=== PATIENT | male | born 1955 | race Caucasian/White ===

== ENCOUNTER 2022-02-24 07:42 | Day surgery (SDC) | payer MEDICARE ==
[~2022-02-24] VITALS: Ht 210.8 cm; Wt 104.0 kg
[~2022-02-24 07:42] MED LIST changes: -FAMO20; -TICA90TA PO
[2022-02-24] MEDS ORDERED: FAMO20 (08:43)
--- NOTE | 2022-02-24 12:05 | NUR ---
PT SITTING IN RECLINER EATING LUNCH WITH FAMILY IN ROOM. RIGHT RADIAL TR BAND SITE SOFT NON-TENDER WTIH NO HEMATOMA, NO PULSATILE BLEEDING AND WRIST BOARD IN PLACE. PT DENIES CHEST PAIN. CALL LIGHT IN REACH.
--- NOTE | 2022-02-24 13:29 | NUR ---
DR. SHARMA AT THE BEDSIDE AND SPOKE TO THE PATIENT. ALL QUESTIONS ANSWERED.
[2022-02-24] MEDS ORDERED: TICA90TA PO (13:59)
--- NOTE | 2022-02-24 14:42 | NUR ---
9339 SBAR RECEIVED FROM CRYS العلي. TR BAND IN PLACE.
--- NOTE | 2022-02-24 14:59 | NUR ---
PATIENT UP TO THE RESTROOM, VOIDED. BACK TO RECLINER AND ON MONITOR. CALL LIGHT IN REACH.
--- NOTE | 2022-02-24 15:33 | NUR ---
1500 BEGAN RELEASING AIR FROM THE TR BAND.
--- NOTE | 2022-02-24 15:33 | NUR ---
1520 TR BAND FLAT, ALL AIR RELEASED. SBAR GIVEN TO CRYS HORN.
--- NOTE | 2022-02-24 15:35 | NUR ---
ASSUMED CARE OF PT. PT AWAKE AND ORIENTED, CONVERSING APPROPRIATELY; DENIES CHEST PAIN, VSS. R RADIAL NO SWELLING/HEMATOMA, TR BAND IN PLACE-FULLY DEFLATED; RUE POSITIVE PLEUTH.
--- NOTE | 2022-02-24 16:10 | NUR ---
PT AMB TO BATHROOM, VOIDED QS; SITE UNCHANGED WITH ACTIVITY.
--- NOTE | 2022-02-24 16:20 | NUR ---
PT DRESSED SELF WITHOUT ISSUE, SITE UNCHANGED. TR BAND REMOVED, CLOTH DOTH AND WRIST IMMOBILIZER PLACED; IV REMOVED-CANNULA INTACT. PT DECLINED SLING.
--- NOTE | 2022-02-24 16:26 | NUR ---
PT AND RECEIVED DISCHARGE INSTRUCTIONS, MED LIST AND AFTER CARE INSTRUCTIONS; VERBALIZED GOOD UNDERSTANDING. PT LEFT FACILITY VIA W/C, CONDITION STABLE.
== END 2022-02-24 16:26 | disposition home or self-care (01) ==
LOC: MHTC 07:42
PROC: B2111ZZ Fluoroscopy of Multiple Coronary Arteries using Low Osmolar Contrast (ICD-10-PCS; principal; 2022-02-24)
PROC: 4A023N7 Measurement of Cardiac Sampling and Pressure, Left Heart, Percutaneous Approach (ICD-10-PCS; principal; 2022-02-24)
PROC: 027034Z Dilation of Coronary Artery, One Artery with Drug-eluting Intraluminal Device, Percutaneous Approach (ICD-10-PCS; principal; 2022-02-24)
DX: I25.119 Atherosclerotic heart disease of native coronary artery with unspecified angina pectoris (principal); I10 Essential (primary) hypertension; E78.5 Hyperlipidemia, unspecified; K21.9 Gastro-esophageal reflux disease without esophagitis; E66.9 Obesity, unspecified; E78.1 Pure hyperglyceridemia; Z87.891 Personal history of nicotine dependence; Z79.82 Long term (current) use of aspirin; Z79.899 Other long term (current) drug therapy; Z68.31 Body mass index [BMI] 31.0-31.9, adult
CPT/HCPCS: 76937; 85347; 92978; 93454; 99152; 99153; A9270; C1725; C1753; C1761; C1769; C1874; C1887; C1894; C9600; C9602; J1644; J2250; J3010; J7030; J7040; J7050; Q9967

== ENCOUNTER → 2022-02-24 | Outpatient (CLI) | payer MEDICARE ==
[~2022-02-24] MED LIST: ALLO300 PO; AMLO10 PO; ASPI81CH PO; Amlodipine Bes2.5 MG PO; Aspirin EC81 MG PO; Atenolol100 MG PO; CALCA500CH; FAMO20; FENO145 PO; Hytrin1 MG PO; IBUP600 PO; LISI20; METOPROLOL TART PO; Norco 5-325 Ta1 EACH PO; TICA90TA PO
[2022-02-25 11:54] LABS: Stool Occult Bld Immuno 1 Negative (NEGATIVE); Stool Occult Bld Immuno 2 Negative (NEGATIVE)
== END | disposition home or self-care (01) ==
LOC: LAB 07:00 → LAB SHORT 07:00
PROVIDERS: Internal Medicine Gastroenterology
DX: Z12.11 Encounter for screening for malignant neoplasm of colon (principal)
CPT/HCPCS: 82274

== ENCOUNTER 2024-12-29 09:15 | Observation (INO) | payer MEDICARE ==
[2024-12-29] VITALS (8 sets, daily range): BP systolic 132–190; BP diastolic 71–94
[~2024-12-29] VITALS: Ht 180.3 cm; Wt 99.2 kg
[~2024-12-29 09:15] MED LIST changes: +AMLODIPINE BESY10 MG PO; -Amlodipine Bes2.5 MG PO; +FAMO20 PO; -LISI20; +LISINOPRIL PO; +METO50 PO; -METOPROLOL TART PO; +TICA90TA PO
[2024-12-29 09:45] LABS: BASOPHILS ABSOLUTE AUTO 0.02 K/mm3 (0.00-0.23); BASOPHILS PERCENT AUTO 0 % (0-2); EOSINOPHILS ABSOLUTE AUTO 0.13 K/mm3 (0.00-0.68); EOSINOPHILS PERCENT AUTO 2 % (0-6); Hematocrit 40.0 % (37.0-53.0); Hemoglobin 14.4 g/dL (13.5-17.5); IMMATURE GRAN ABSOLUTE AUTO 0.03 K/mm3 (0.00-0.10); IMMATURE GRAN PERCENT AUTO 1 % (0-1); LYMPHOCYTES ABSOLUTE AUTO 1.53 K/mm3 (0.84-5.20); LYMPHOCYTES PERCENT AUTO 24 % (21-46); MONOCYTES ABSOLUTE AUTO 0.55 K/mm3 (0.16-1.47); MONOCYTES PERCENT AUTO 9 % (4-13); Mean Corpuscular HGB Conc 36.0 g/dL (31.5-36.5); Mean Corpuscular Volume 90 fL (80-100); NEUTROPHILS ABSOLUTE AUTO 4.04 K/mm3 (1.96-9.15); NEUTROPHILS PERCENT AUTO 64 % (41-73); NRBC ABSOLUTE 0.00 K/mm3 (0.00-0.02); NRBC Auto 0.0 /100 WBC (0.0-0.2); Platelet Count 151 K/mm3 (150-400); RDW Coefficient Variation 12.0 % (11.7-14.2); RDW Standard Deviation 39.4 fL (35.1-46.3)
[2024-12-29 10:13] LABS: Alanine Aminotransfer (ALT/SGP 35.0 U/L (12-78); Albumin, Blood 3.5 g/dL (3.4-5.0); Albumin/Globulin Ratio 0.9 (0.8-1.8); Anion Gap 8.0 mmol/L (3-11); Aspartate Aminotrans (AST/SGOT 27.0 U/L (12-37); Bilirubin, Total 0.6 mg/dL (0.1-1.0); Blood Urea Nitrogen 13.0 mg/dL (8-24); CO2, Blood 26.0 mmol/L (21-32); Calcium, Blood 8.6 mg/dL (8.5-10.1); Chloride, Blood 105.0 mmol/L (98-108); Creatinine, Blood 0.75 mg/dL (0.60-1.20); Globulin, Blood 3.8 g/dL (2.2-4.0); Glucose, Blood 153.0 mg/dL (70-99); Potassium, Blood 3.9 mmol/L (3.5-5.5); Sodium, Blood 135.0 mmol/L (136-145); Total Protein, Blood 7.3 g/dL (6.4-8.2)
[2024-12-29 11:06] LABS: Prothrombin Time Results 10.9 Sec (9.7-11.5)
[2024-12-29] MEDS ORDERED: Heparin Sodium 5000 Units/ML 1ML MDV IV ONE (11:15)
[2024-12-29] MEDS ORDERED: Heparin Sodium,Porcine/0.5 NS 500 ML IV SCH (11:15)
[2024-12-29] MEDS ORDERED: ATOR10 PO (12:45)
[2024-12-29] MEDS ORDERED: VASCEPA1 G1 PO (12:47)
[2024-12-29] MEDS ORDERED: NS 1,000 ML IV ONE ×2 (14:27→14:40)
[2024-12-29] MEDS ORDERED: Verapamil HCL 2.5 MG/ML 2ML Injection ONE (14:27)
[2024-12-29] MEDS ORDERED: Heparin Sodium 1000 Units/ML 10ML MDV ONE (14:27)
[2024-12-29] MEDS ORDERED: NS 250 ML IV ONE (14:27)
[2024-12-29] MEDS ORDERED: Nitroglycerin 2 MG/20 ML BTL ONE (14:27)
[2024-12-29] MEDS ORDERED: Midazolam HCl 1MG / ML 2ML Vial ONE (14:40)
[2024-12-29] MEDS ORDERED: FentaNYL Citrate 50 MCG/ML 2 ML Injection ONE (14:40)
[2024-12-29] MEDS ORDERED: Tirofiban HCL M-Hyd/NS 250 ML IV ONE (15:38)
[2024-12-29] MEDS ORDERED: NS 1,000 ML IV SCH (16:55)
--- NOTE | 2024-12-29 18:29 | NUR ---
TR BAND REMOVED 2ML OF AIR FROM TR BAND, SITE LOOKS C/D/I. EDUCATED PATIENT ON DEFLATION PROCESS.
--- NOTE | 2024-12-29 18:30 | NUR ---
SHIFT SUMMARY PT BROUGHT UP TO THE FLOOR FROM THE ER, ADMITTED FOR NSTEMI, CARDIOLOGY CONSULTED, TAKEN TO THE IT ASSOCIATE FOR ANGO WITH STENT PLACEMENT, PT RETURNED TO THE ROOM AFTER HIS PROCEDURE WITH 1 NEW STENT IN HIS RCA. STARTED TR BAND DEFLATION WITH 2ML OF AIR REMOVED SO FAR. PT EDUCATED ON TR BAND PROCESS, PT STATES ON HIS PRIOR STENTING THE RADIAL SITE WAS THE ONE ACCESSED WELL SO HE WAS FAMILIAR WITH THE PROCESS. NO ACUTE EVENTS THIS SHIFT, PLAN TO MONITOR OVER NIGHT WITH POSSIBLE DC IN THE MORNING.
--- NOTE | 2024-12-29 18:48 | NUR ---
TR BAND ADJUSTMENT REMOVED ANOTHER 2ML OF AIR FROM TR BAND TOTAL OF 4 ML REMOVED.
--- NOTE | 2024-12-29 19:02 | NUR ---
TR BAND ADJUSTMENT REMOVED 3 ML FROM TR BAND, NO BLEEDING NOTED TOTAL 7 ML REMOVED SO FAR NOT COUNTING BLEED OFF.
[2024-12-29] MEDS ORDERED: Omega-3 Acid Ethyl Esters 1,000 MG CAP PO SCH (21:00)
[2024-12-30 02:10] LABS: Alanine Aminotransfer (ALT/SGP 35.0 U/L (12-78); Albumin, Blood 3.2 g/dL (3.4-5.0); Albumin/Globulin Ratio 0.9 (0.8-1.8); Anion Gap 9.0 mmol/L (3-11); Aspartate Aminotrans (AST/SGOT 24.0 U/L (12-37); Bilirubin, Total 0.7 mg/dL (0.1-1.0); Blood Urea Nitrogen 10.0 mg/dL (8-24); CO2, Blood 26.0 mmol/L (21-32); Calcium, Blood 7.9 mg/dL (8.5-10.1); Chloride, Blood 105.0 mmol/L (98-108); Creatinine, Blood 0.74 mg/dL (0.60-1.20); Globulin, Blood 3.5 g/dL (2.2-4.0); Glucose, Blood 91.0 mg/dL (70-99); Potassium, Blood 3.5 mmol/L (3.5-5.5); Sodium, Blood 136.0 mmol/L (136-145); Total Protein, Blood 6.7 g/dL (6.4-8.2)
[2024-12-30 02:16] LABS: BASOPHILS ABSOLUTE AUTO 0.02 K/mm3 (0.00-0.23); BASOPHILS PERCENT AUTO 0 % (0-2); EOSINOPHILS ABSOLUTE AUTO 0.14 K/mm3 (0.00-0.68); EOSINOPHILS PERCENT AUTO 2 % (0-6); Hematocrit 39.1 % (37.0-53.0); Hemoglobin 14.1 g/dL (13.5-17.5); IMMATURE GRAN ABSOLUTE AUTO 0.03 K/mm3 (0.00-0.10); IMMATURE GRAN PERCENT AUTO 1 % (0-1); LYMPHOCYTES ABSOLUTE AUTO 1.69 K/mm3 (0.84-5.20); LYMPHOCYTES PERCENT AUTO 28 % (21-46); MONOCYTES ABSOLUTE AUTO 0.51 K/mm3 (0.16-1.47); MONOCYTES PERCENT AUTO 8 % (4-13); Mean Corpuscular HGB Conc 36.1 g/dL (31.5-36.5); Mean Corpuscular Volume 92 fL (80-100); NEUTROPHILS ABSOLUTE AUTO 3.71 K/mm3 (1.96-9.15); NEUTROPHILS PERCENT AUTO 61 % (41-73); NRBC ABSOLUTE 0.00 K/mm3 (0.00-0.02); NRBC Auto 0.0 /100 WBC (0.0-0.2); Platelet Count 150 K/mm3 (150-400); RDW Coefficient Variation 12.1 % (11.7-14.2); RDW Standard Deviation 40.1 fL (35.1-46.3)
[2024-12-30 03:56] VITALS: BP 134/77
--- NOTE | 2024-12-30 06:40 | NUR ---
SHIFT SUMMARY: PT A&OX4, PLEASANT AND COOPERATIVE WITH CARE. VSS ON RA. SB-SR 50'S-60'S. DENIES PAIN. TR BAND REMOVED. NO S/S OF HEMATOMA, SOFT TO PALPATE. TEGADERM INTACT, WITH MINIMAL DRAINAGE. ARM BOARD REMAINS IN PLACE. PT TOLERATING A HEART HEALTHY DIET. PT IS AD SIMON INDEPENDENTLY IN ROOM/BR. PT VOIDING LARGE AMOUNTS OF CLEAR, YELLOW URINE. NO BM THIS SHIFT. BED IN LOWEST POSITION, CALL LIGHT WITHIN REACH. CALLS APPROPRIATELY AND IS ABLE TO ADVOCATE NEEDS EFFECTIVELY.
[2024-12-30 07:56] VITALS: BP 140/75
[2024-12-30] MEDS ORDERED: CLOP75 PO (11:00)
--- NOTE | 2024-12-30 11:42 | NUR ---
UPDATE DISCHARGE INSTRUCTIONS PROVIDED TO PT. PT EDCATED ON NEW MEDS AND MED CHANGES. PT EDUCATED ON FOLLOW-UP AND RIGHT ARM RESTRICTIONS. ALL QUESTIONS ANSWERED. PT TAKEN OUT VIA WC
== END 2024-12-30 11:26 | disposition home or self-care (01) ==
LOC: ER 09:15 → PCU 11:33
PROVIDERS: Emergency Medicine; ADMIT Family Medicine
DX: I21.4 Non-ST elevation (NSTEMI) myocardial infarction (principal); I25.10 Atherosclerotic heart disease of native coronary artery without angina pectoris; M10.9 Gout, unspecified; I10 Essential (primary) hypertension; N40.0 Benign prostatic hyperplasia without lower urinary tract symptoms; K21.9 Gastro-esophageal reflux disease without esophagitis; E78.5 Hyperlipidemia, unspecified; Z95.5 Presence of coronary angioplasty implant and graft; Z79.02 Long term (current) use of antithrombotics/antiplatelets; Z79.82 Long term (current) use of aspirin; Z79.899 Other long term (current) drug therapy
CPT/HCPCS: 36415; 71045; 76937; 80053; 84484; 85025; 85347; 85610; 85730; 92978; 93005; 93010; 93306; 93454; 99152; 99153; A9270; C1725; C1753; C1769; C1874; C1887; C1894; C9600; G0378; J1644; J2250; J3010; J3246; J7030; J7050; Q9967